=== PATIENT | male | born 1940 | race Caucasian/White ===

== ENCOUNTER → 2018-08-11 | Outpatient (CLI) | payer MEDICARE, OTHER ==
[2018-08-11 12:12] LABS: Basophils # (auto) 0.1 uL; Basophils % (auto) 1.3 % (0.0-2.0); Eosinophils # (auto) 0.3 uL; Eosinophils % (auto) 4.2 % (0.0-7.0); Hematocrit 48.7 % (41.0-53.0); Hemoglobin 16.2 g/dL (13.5-17.5); Lymphocytes # (auto) 2.1 uL; Lymphocytes % (auto) 30.3 % (10.0-50.0); Mean Corpuscular Hemoglobin 32.4 pg (28.0-32.0); Mean Corpuscular Hgb Conc. 33.4 g/dL (32.0-36.0); Mean Corpuscular Volume 97.1 fL (80.0-100.0); Monocytes # (auto) 0.6 uL; Monocytes % (auto) 9.2 % (0.0-12.0); Neutrophils # (auto) 3.8 uL; Nucleated Red Blood Cells % 0.2 %; Platelet Count (auto) 321 10^3/uL (140-450); Red Blood Cells 5.02 10^6/uL (4.5-5.90); Red Cell Distribution Width 13.3 % (11.8-14.3)
[2018-08-11 12:21] LABS: Albumin 3.7 g/dL (3.4-5.0); Potassium 4.4 mmol/L (3.5-5.1)
[2018-08-11 12:26] LABS: BUN/Creatinine Ratio 14.3; Bilirubin, Direct 0.2 mg/dL (0-0.2); Bilirubin, Total 0.6 mg/dL (0.2-1.0); Total Protein 7.8 g/dL (6.4-8.2)
== END | disposition home or self-care (01) ==
LOC: LAB 09:17
PROVIDERS: ATTEND Internal Medicine
DX: Z00.01 Encounter for general adult medical examination with abnormal findings (principal); K74.1 Hepatic sclerosis; E11.9 Type 2 diabetes mellitus without complications; E03.9 Hypothyroidism, unspecified; E55.9 Vitamin D deficiency, unspecified; C61 Malignant neoplasm of prostate; E29.1 Testicular hypofunction
CPT/HCPCS: 36415; 80048; 80061; 80076; 82306; 83036; 84153; 84403; 84443; 85025

== ENCOUNTER → 2018-08-20 | Outpatient (CLI) | payer MEDICARE, OTHER ==
[2018-08-20 09:25] VITALS: BP 113/83
[2018-08-20 09:40] VITALS: BP 113/83
== END | disposition home or self-care (01) ==
LOC: CHF HDHVI 09:23
PROVIDERS: ATTEND Internal Medicine
DX: Z48.02 Encounter for removal of sutures (principal)
CPT/HCPCS: G0463

== ENCOUNTER → 2018-09-15 | Outpatient (CLI) | payer MEDICARE, OTHER ==
[~2018-09-15] MED LIST: LEVO50TA66 PO
== END | disposition home or self-care (01) ==
LOC: Rad HDHVI 10:31
PROVIDERS: ATTEND Internal Medicine Cardiovascular Disease
DX: I34.0 Nonrheumatic mitral (valve) insufficiency (principal); I10 Essential (primary) hypertension; I47.1 Supraventricular tachycardia
CPT/HCPCS: 93306

== ENCOUNTER → 2018-09-28 | Outpatient (CLI) | payer MEDICARE, OTHER | END | disposition home or self-care (01) | LOC: LAB 08:31 | PROVIDERS: ATTEND Internal Medicine Cardiovascular Disease | DX: E03.9 Hypothyroidism, unspecified (principal) | CPT/HCPCS: 36415; 84439; 84443 ==

== ENCOUNTER → 2019-08-12 | Outpatient (CLI) | payer BC, MEDICARE ==
--- NOTE | 2019-08-12 14:15 | NUR ---
PATIENT RECEIVED FROM DR. SCHILLING'S OFFICE PATIENT OVER TO [facility] FORM PREOP EKG AND LABS. PATIENT IS AMBULATING WITH STEADY GAIT, PATIENT IS A&O, APPEARS CALM WITH NO S/S OF DISTRESS/SOB NOTED. VITALS TAKEN, PATIENT IS TACHYCARDIC BUT OTHERWISE REMAINS ASYMPTOMATIC. ALL OTHER VS WNL. EKG PERFORMED BY 'S BACK OFFICE. EKG REVIEWED BY DR. SCHILLING AND RESULTS DISCUSSED WITH PT/PT FAMILY. EVENT HOLTER MONITOR PLACED IN 'S OFFICE WITH INSTRUCTIONS/EDUCATION PROVIDED BY DR. SCHILLING'S BACK OFFICE.
[2019-08-12 14:20] VITALS: BP 106/81
[2019-08-12 14:30] VITALS: BP 121/86
--- NOTE | 2019-08-12 14:40 | NUR ---
Pre-Op Discharge Summary: Pre-op orders received and carried out per MD of LABS and chest xrays. EKG previously performed in Dr. Duarte's back office. Patient given a copy of EKG with instructions to go to [facility] on thursday morning, 08/15/19, at 0700 for preop cardioversion for further follow up care. Pt/pt family verbalized understanding.
[2019-08-12 15:28] LABS: Basophils # (auto) 0.1 uL; Basophils % (auto) 1.1 % (0.0-2.0); Eosinophils # (auto) 0.3 uL; Eosinophils % (auto) 3.9 % (0.0-7.0); Hematocrit 50.7 % (41.0-53.0); Lymphocytes # (auto) 2.2 uL; Lymphocytes % (auto) 30.9 % (10.0-50.0); Mean Corpuscular Hemoglobin 32.2 pg (28.0-32.0); Mean Corpuscular Hgb Conc. 33.6 g/dL (32.0-36.0); Mean Corpuscular Volume 95.9 fL (80.0-100.0); Monocytes # (auto) 0.7 uL; Neutrophils % (auto) 55.1 % (37.0-80.0); Nucleated Red Blood Cells % 0.1 %; Platelet Count (auto) 277 10^3/uL (140-450); Red Blood Cells 5.28 10^6/uL (4.5-5.90); White Blood Cell 7.2 10^3/uL (4.4-10.8)
[2019-08-12 15:43] LABS: BUN/Creatinine Ratio 18.8; Calcium 9.2 mg/dL (8.5-10.1); INR 1.54 (0.9-1.15); Potassium 4.2 mmol/L (3.5-5.1)
== END | disposition home or self-care (01) ==
LOC: Rad HDHVI 14:16
PROVIDERS: ATTEND Internal Medicine Cardiovascular Disease
DX: Z01.812 Encounter for preprocedural laboratory examination (principal); I70.0 Atherosclerosis of aorta; R00.0 Tachycardia, unspecified
CPT/HCPCS: 36415; 71046; 80048; 85025; 85610; 85730; G0463

== ENCOUNTER 2019-08-15 07:01 | Day surgery (SDC) | payer BC, MEDICARE ==
[2019-08-15] MEDS ORDERED: MIDAZOLAM HCL 1MG/1ML-2 ML VIAL IV ONE (08:15)
[2019-08-15] MEDS ORDERED: fentaNYL CITRATE 100 MCG/2 ML VL IV ONE (08:15)
== END 2019-08-15 10:21 | disposition home or self-care (01) ==
LOC: CATH 07:01
PROVIDERS: ATTEND Internal Medicine Cardiovascular Disease
DX: I48.0 Paroxysmal atrial fibrillation (principal); I48.92 Unspecified atrial flutter; I11.0 Hypertensive heart disease with heart failure; I50.9 Heart failure, unspecified; Z87.891 Personal history of nicotine dependence
CPT/HCPCS: 92960; 93005; J2250; J3010; 99152

== ENCOUNTER → 2019-09-26 | Outpatient (CLI) | payer BC, MEDICARE ==
[2019-09-27 11:57] LABS: Basophils # (auto) 0.2 uL; Basophils % (auto) 3.2 % (0.0-2.0); Eosinophils # (auto) 0.4 uL; Eosinophils % (auto) 6.1 % (0.0-7.0); Hematocrit 47.1 % (41.0-53.0); Hemoglobin 15.7 g/dL (13.5-17.5); Lymphocytes # (auto) 2.5 uL; Lymphocytes % (auto) 34.8 % (10.0-50.0); Mean Corpuscular Hemoglobin 32.1 pg (28.0-32.0); Mean Corpuscular Hgb Conc. 33.3 g/dL (32.0-36.0); Mean Corpuscular Volume 96.6 fL (80.0-100.0); Monocytes # (auto) 0.7 uL; Monocytes % (auto) 9.8 % (0.0-12.0); Neutrophils # (auto) 3.3 uL; Neutrophils % (auto) 46.1 % (37.0-80.0); Nucleated Red Blood Cells % 0.1 %; Platelet Count (auto) 262 10^3/uL (140-450); Red Blood Cells 4.87 10^6/uL (4.5-5.90); White Blood Cell 7.2 10^3/uL (4.4-10.8)
[2019-09-27 12:15] LABS: Potassium 4.4 mmol/L (3.5-5.1)
[2019-09-27 12:24] LABS: BUN/Creatinine Ratio 16.7
== END | disposition home or self-care (01) ==
LOC: LAB 15:49
PROVIDERS: ATTEND Internal Medicine Cardiovascular Disease
DX: D64.9 Anemia, unspecified (principal); I10 Essential (primary) hypertension
CPT/HCPCS: 36415; 80048; 85025

== ENCOUNTER → 2019-12-05 | Outpatient (CLI) | payer BC, MEDICARE | END | disposition home or self-care (01) | LOC: Rad HDHVI 08:04 | PROVIDERS: ATTEND Internal Medicine Cardiovascular Disease | DX: I07.1 Rheumatic tricuspid insufficiency (principal); I48.91 Unspecified atrial fibrillation; R07.89 Other chest pain; R06.02 Shortness of breath | CPT/HCPCS: 93306 ==

== ENCOUNTER → 2019-12-09 | Outpatient (CLI) | payer BC, MEDICARE ==
[~2019-12-09] VITALS: Ht 177.8 cm; Wt 99.8 kg
== END | disposition home or self-care (01) ==
LOC: Rad HDHVI 08:55
PROVIDERS: ATTEND Internal Medicine Cardiovascular Disease
DX: I48.91 Unspecified atrial fibrillation (principal); I10 Essential (primary) hypertension
CPT/HCPCS: 78452; 93017; 96374; A9500

== ENCOUNTER → 2020-09-04 | Outpatient (CLI) | payer BC, MEDICARE ==
[2020-09-04 12:07] LABS: Basophils # (auto) 0.1 10 ^3/uL (0-0.2); Basophils % (auto) 2.4 % (0.0-2.0); Eosinophils # (auto) 0.3 10 ^3/uL (0-0.8); Eosinophils % (auto) 5.3 % (0.0-7.0); Hemoglobin 16.7 g/dL (13.5-17.5); Lymphocytes # (auto) 1.4 10 ^3/uL (0.4-5.4); Lymphocytes % (auto) 22.3 % (10.0-50.0); Mean Corpuscular Hemoglobin 33.3 pg (28.0-32.0); Mean Corpuscular Hgb Conc. 33.5 g/dL (32.0-36.0); Mean Corpuscular Volume 99.3 fL (80.0-100.0); Monocytes # (auto) 0.6 10 ^3/uL (0-1.3); Monocytes % (auto) 9.8 % (0.0-12.0); Neutrophils # (auto) 3.8 10 ^3/uL (1.6-8.6); Neutrophils % (auto) 60.2 % (37.0-80.0); Nucleated Red Blood Cells % 0.8 %; Platelet Count (auto) 315 10^3/uL (140-450); Red Blood Cells 5.03 10^6/uL (4.5-5.90); Red Cell Distribution Width 13.1 % (11.8-14.3); White Blood Cell 6.3 10^3/uL (4.4-10.8)
[2020-09-04 12:10] LABS: Urine Blood Negative /uL (Negative); Urine Specific Gravity 1.016 (1.001-1.035)
[2020-09-04 12:21] LABS: Calcium 9.5 mg/dL (8.5-10.1); Potassium 4.7 mmol/L (3.5-5.1)
[2020-09-04 12:28] LABS: Bilirubin, Total 0.5 mg/dL (0.2-1.0)
[2020-09-04 12:31] LABS: Free T4 (Free Thyroxine) 0.84 ng/dL (0.89-1.76)
== END | disposition home or self-care (01) ==
LOC: LAB 08:12
PROVIDERS: ATTEND Internal Medicine Cardiovascular Disease
DX: C61 Malignant neoplasm of prostate (principal); D51.3 Other dietary vitamin B12 deficiency anemia; I10 Essential (primary) hypertension; E11.9 Type 2 diabetes mellitus without complications; E55.9 Vitamin D deficiency, unspecified; D64.9 Anemia, unspecified; R00.2 Palpitations; R53.1 Weakness; R30.0 Dysuria
CPT/HCPCS: 36415; 80053; 80061; 81003; 82306; 82607; 83036; 84153; 84403; 84439; 84443; 85025

== ENCOUNTER → 2021-02-01 | Outpatient (CLI) | payer MEDICARE ==
[2021-02-01 11:42] LABS: Hemoglobin 15.2 g/dL (13.5-17.5); Mean Corpuscular Volume 98.5 fL (80.0-100.0); Nucleated Red Blood Cells % 0.1 %; Red Cell Distribution Width 13.2 % (11.8-14.3)
[2021-02-01 11:44] LABS: Basophils # (auto) 0.2 10 ^3/uL (0-0.2); Basophils % (auto) 2.4 % (0.0-2.0); Eosinophils # (auto) 0.4 10 ^3/uL (0-0.8); Eosinophils % (auto) 5.8 % (0.0-7.0); Hematocrit 43.4 % (41.0-53.0); Lymphocytes # (auto) 2.2 10 ^3/uL (0.4-5.4); Mean Corpuscular Hemoglobin 34.6 pg (28.0-32.0); Mean Corpuscular Hgb Conc. 35.1 g/dL (32.0-36.0); Monocytes # (auto) 0.5 10 ^3/uL (0-1.3); Neutrophils # (auto) 3.2 10 ^3/uL (1.6-8.6); Neutrophils % (auto) 49.8 % (37.0-80.0); Platelet Count (auto) 291 10^3/uL (140-450); Red Blood Cells 4.41 10^6/uL (4.5-5.90); Urine Blood Negative /uL (Negative); Urine Specific Gravity 1.022 (1.001-1.035); White Blood Cell 6.4 10^3/uL (4.4-10.8)
[2021-02-01 11:57] LABS: Potassium 4.4 mmol/L (3.5-5.1)
[2021-02-01 12:07] LABS: Albumin 3.9 g/dL (3.4-5.0); BUN/Creatinine Ratio 12.7; Bilirubin, Direct 0.2 mg/dL (0-0.2); Bilirubin, Total 0.5 mg/dL (0.2-1.0); Calcium 9.5 mg/dL (8.5-10.1); Total Protein 7.2 g/dL (6.4-8.2)
== END | disposition home or self-care (01) ==
LOC: LAB 10:19
PROVIDERS: ATTEND Internal Medicine Cardiovascular Disease
DX: C61 Malignant neoplasm of prostate (principal); D51.3 Other dietary vitamin B12 deficiency anemia; R30.0 Dysuria; R53.1 Weakness; R00.2 Palpitations; I10 Essential (primary) hypertension; E55.9 Vitamin D deficiency, unspecified; E11.9 Type 2 diabetes mellitus without complications; D64.9 Anemia, unspecified
CPT/HCPCS: 36415; 80048; 80061; 80076; 81003; 82306; 83036; 84153; 84403; 84443; 85025

== ENCOUNTER → 2021-02-06 | Outpatient (CLI) | payer MEDICARE ==
[~2021-02-06] VITALS: Ht 180.3 cm; Wt 106.6 kg
== END | disposition home or self-care (01) ==
LOC: Rad HDHVI 13:50
PROVIDERS: ATTEND Internal Medicine Cardiovascular Disease
DX: I10 Essential (primary) hypertension (principal); R00.2 Palpitations; E78.5 Hyperlipidemia, unspecified; U07.1 COVID-19
CPT/HCPCS: 78452; 93017; 96374; A9500

== ENCOUNTER → 2021-02-08 | Outpatient (CLI) | payer MEDICARE | END | disposition home or self-care (01) | LOC: Rad HDHVI 13:02 | PROVIDERS: ATTEND Internal Medicine Cardiovascular Disease | DX: R00.2 Palpitations (principal); R07.89 Other chest pain | CPT/HCPCS: 93306 ==

== ENCOUNTER → 2022-01-10 | Outpatient (CLI) | payer MEDICARE | END | disposition home or self-care (01) | LOC: LAB 09:24 | PROVIDERS: ATTEND Internal Medicine | DX: E03.9 Hypothyroidism, unspecified (principal) | CPT/HCPCS: 36415; 84439; 84443 ==

== ENCOUNTER → 2022-03-07 | Outpatient (CLI) | payer MEDICARE | END | disposition home or self-care (01) | LOC: LAB 10:50 | PROVIDERS: ATTEND Internal Medicine Cardiovascular Disease | DX: E03.9 Hypothyroidism, unspecified (principal) | CPT/HCPCS: 36415; 84443 ==

== ENCOUNTER → 2022-09-08 | Outpatient (CLI) | payer MEDICARE ==
[~2022-09-08] MED LIST changes: +DIGO0.12 PO; +FLUC100T34 PO; +LIOT50TA PO; +MAGN241.4 PO; +MULT-1018 PO; +RIVA10TA PO; +SOTA80TA PO; +[UNRECOGNIZED DRUG - CODE] IM
[2022-09-08 13:06] VITALS: BP 150/80
[2022-09-08 13:23] VITALS: BP 143/78
[2022-09-08 16:35] LABS: Basophils # (auto) 0.1 10 ^3/uL (0-0.2); Basophils % (auto) 1.4 % (0.0-2.0); Eosinophils # (auto) 0.2 10 ^3/uL (0-0.8); Eosinophils % (auto) 3.1 % (0.0-7.0); Hematocrit 46.5 % (41.0-53.0); Hemoglobin 15.6 g/dL (13.5-17.5); Lymphocytes # (auto) 2.1 10 ^3/uL (0.4-5.4); Lymphocytes % (auto) 32.9 % (10.0-50.0); Mean Corpuscular Hemoglobin 31.3 pg (28.0-32.0); Mean Corpuscular Hgb Conc. 33.6 g/dL (32.0-36.0); Mean Corpuscular Volume 93.1 fL (80.0-100.0); Monocytes # (auto) 0.9 10 ^3/uL (0-1.3); Monocytes % (auto) 13.1 % (0.0-12.0); Neutrophils # (auto) 3.2 10 ^3/uL (1.6-8.6); Neutrophils % (auto) 49.5 % (37.0-80.0); Red Blood Cells 4.99 10^6/uL (4.5-5.90); Red Cell Distribution Width 13.3 % (11.8-14.3); White Blood Cell 6.5 10^3/uL (4.4-10.8)
[2022-09-08 16:46] LABS: BUN/Creatinine Ratio 14.6; Calcium 9.5 mg/dL (8.5-10.1); Potassium 4.2 mmol/L (3.5-5.1)
[2022-09-08 17:31] LABS: INR 1.12 (0.9-1.15); Partial Thromboplastin Time 28.6 sec (24.6-33.4)
== END | disposition home or self-care (01) ==
LOC: Rad HDHVI 12:55
PROVIDERS: ATTEND Internal Medicine Cardiovascular Disease
DX: I48.0 Paroxysmal atrial fibrillation (principal)
CPT/HCPCS: 36415; 71046; 80048; 85025; 85610; 85730; 93005; G0463

== ENCOUNTER 2022-09-12 11:45 | Day surgery (SDC) | payer MEDICARE ==
[~2022-09-12] VITALS: Ht 177.8 cm; Wt 102.5 kg
[~2022-09-12 11:45] MED LIST changes: -LEVO50TA66 PO
[2022-09-12] MEDS ORDERED: fentaNYL CITRATE 100 MCG/2 ML VL ONE (15:14)
[2022-09-12] MEDS ORDERED: VANCOMYCIN 1GM/250ML 250 ML IV ONE (15:14)
[2022-09-12] MEDS ORDERED: VANCOMYCIN HCL 1000 MG VL ONE (15:14)
[2022-09-12] MEDS ORDERED: MIDAZOLAM HCL 2MG/2ML 2ml VIAL (1mg/ml) ONE (15:14)
[2022-09-12] MEDS ORDERED: LIDOCAINE 2%HCL (LOCAL ANESTH.) INJ 20ML MDV ONE (15:21)
[2022-09-12] MEDS ORDERED: FUROSEMIDE 20 MG/2 ML VIAL ONE (15:44)
== END 2022-09-12 18:05 | disposition home or self-care (01) ==
LOC: CATH 11:45
PROVIDERS: ATTEND Internal Medicine Cardiovascular Disease
DX: I49.5 Sick sinus syndrome (principal); R06.09 Other forms of dyspnea; I10 Essential (primary) hypertension; Z86.718 Personal history of other venous thrombosis and embolism; I48.0 Paroxysmal atrial fibrillation; Z87.891 Personal history of nicotine dependence; Z79.899 Other long term (current) drug therapy; Z79.01 Long term (current) use of anticoagulants; Z20.822 Contact with and (suspected) exposure to COVID-19
CPT/HCPCS: 33208; 71045; 93005; C1785; C1892; C1898; J1940; J2250; J3010; J3370; U0003; 99152

== ENCOUNTER → 2022-09-17 | Outpatient (CLI) | payer MEDICARE | END | disposition home or self-care (01) | LOC: Rad HDHVI 11:57 | PROVIDERS: ATTEND Internal Medicine Cardiovascular Disease | DX: I70.0 Atherosclerosis of aorta (principal); Z95.0 Presence of cardiac pacemaker | CPT/HCPCS: 71046 ==

== ENCOUNTER → 2023-02-13 | Outpatient (CLI) | payer MEDICARE ==
[~2023-02-13] MED LIST changes: +IOHEXOL 350 MG/ML 100ML IJ ONE; +READI-CAT 2 (BARIUM SULF)(VANILLA SMOOTHIE) 450ML ONE
[2023-02-13 11:22] VITALS: BP 128/79
[2023-02-13 12:18] VITALS: BP 154/73
== END | disposition home or self-care (01) ==
LOC: Rad HDHVI 11:13
PROVIDERS: ATTEND Internal Medicine Cardiovascular Disease
DX: N40.0 Benign prostatic hyperplasia without lower urinary tract symptoms (principal); R63.4 Abnormal weight loss
CPT/HCPCS: 74177; G0463; Q9967

== ENCOUNTER → 2024-09-16 | Outpatient (CLI) | payer MEDICARE ==
[~2024-09-16] MED LIST changes: -IOHEXOL 350 MG/ML 100ML IJ ONE; -READI-CAT 2 (BARIUM SULF)(VANILLA SMOOTHIE) 450ML ONE
== END | disposition home or self-care (01) ==
LOC: Rad HDHVI 09:50
PROVIDERS: ATTEND Internal Medicine Cardiovascular Disease
DX: I10 Essential (primary) hypertension (principal)
CPT/HCPCS: 93306

== ENCOUNTER → 2024-09-28 | Outpatient (CLI) | payer MEDICARE | END | disposition home or self-care (01) | LOC: Rad HDHVI 09:04 | PROVIDERS: ATTEND Internal Medicine Cardiovascular Disease | DX: I25.2 Old myocardial infarction (principal) | CPT/HCPCS: 93880 ==

== ENCOUNTER → 2024-10-24 | Outpatient (CLI) | payer MEDICARE ==
--- NOTE | 2024-10-24 11:26 | DVH ---
EXAM: XY CHEST TWO VIEWS ROUTINE CLINICAL HISTORY: CONGESTION/ SOB COMPARISON: CHEST TWO VIEWS ROUTINE on DOS: 09/17/22, CXR2 on DOS: 09/17/22, CXR2 on DOS: 09/08/22, C HEST TWO VIEWS ROUTINE on DOS: 09/08/22 TECHNIQUE: Frontal and lateral view of the chest was obtained FINDINGS: Lines and Tubes: Cardiac pacemaker projects over left chest wall. Lungs: No focal consolidation. Pleura: No effusion. No pneumothorax. Cardiomediastinal contours: Unremarkable Bones: No acute osseous abnormality. IMPRESSION: No acute cardiopulmonary disease.
== END | disposition home or self-care (01) ==
LOC: Rad HDHVI 09:54
PROVIDERS: ATTEND Internal Medicine Cardiovascular Disease
DX: R09.89 Other specified symptoms and signs involving the circulatory and respiratory systems (principal); R06.02 Shortness of breath
CPT/HCPCS: 71046

== ENCOUNTER 2025-08-28 08:44 | Outpatient (CLI) | payer MEDICARE ==
[~2025-08-28] VITALS: Ht 177.8 cm; Wt 85.3 kg
[2025-08-28] MEDS ORDERED: ADENOSINE 90 MG/30 ML INJ IV ONE (11:14)
[2025-08-28] MEDS ORDERED: ADENOSINE 72 MG in GIVE UN-DILUTED 0 ML IV ONE (11:30)
== END 2025-08-28 17:00 | disposition home or self-care (01) ==
LOC: Rad HDHVI 08:44
PROVIDERS: ATTEND Internal Medicine Cardiovascular Disease
DX: I49.3 Ventricular premature depolarization (principal); I48.91 Unspecified atrial fibrillation; I11.9 Hypertensive heart disease without heart failure; I50.43 Acute on chronic combined systolic (congestive) and diastolic (congestive) heart failure; I48.20 Chronic atrial fibrillation, unspecified; I49.5 Sick sinus syndrome; I25.10 Atherosclerotic heart disease of native coronary artery without angina pectoris; I25.2 Old myocardial infarction; G45.9 Transient cerebral ischemic attack, unspecified; R00.2 Palpitations; E78.00 Pure hypercholesterolemia, unspecified; Z95.0 Presence of cardiac pacemaker
CPT/HCPCS: 78452; 93017; A9500; J0153

== ENCOUNTER 2025-09-13 08:55 | Outpatient (CLI) | payer MEDICARE ==
[2025-09-13 09:06] VITALS: BP 130/86; PULSE 84; RESP 16; O2SAT 96
[2025-09-13 09:30] VITALS: BP 124/71; PULSE 94; RESP 16; O2SAT 96
[2025-09-13] MEDS ORDERED: METO25TA93 PO (10:24)
[2025-09-13] MEDS ORDERED: APIX2.5T PO (10:24)
== END 2025-09-13 17:00 | disposition home or self-care (01) ==
LOC: CHF HDHVI 08:55
PROVIDERS: ATTEND Internal Medicine Cardiovascular Disease
DX: Z01.810 Encounter for preprocedural cardiovascular examination (principal); I48.91 Unspecified atrial fibrillation
CPT/HCPCS: 93005; G0463

== ENCOUNTER 2025-09-14 07:50 | Day surgery (SDC) | payer MEDICARE ==
[2025-09-13 12:13] LABS: Hematocrit 46.1 % (41.0-53.0); Hemoglobin 16.4 g/dL (13.5-17.5); Mean Corpuscular Hemoglobin 33.3 pg (28.0-32.0); Mean Corpuscular Volume 93.7 fL (80.0-100.0); Nucleated Red Blood Cells % 0.1 %
[2025-09-13 12:43] LABS: Anion Gap 7 (5-15); Chloride 101 mmol/L (98-107); Sodium 140 mmol/L (136-145)
[2025-09-13 12:44] LABS: Calcium 10.2 mg/dL (8.7-10.4); Carbon Dioxide 32 mmol/L (20-31); Potassium 5.1 mmol/L (3.5-5.1)
[2025-09-13 12:49] LABS: BUN/Creatinine Ratio 17.5 (10.0-20.0); Blood Urea Nitrogen 18 mg/dL (9-23); Glucose 93 mg/dL (74-106)
[2025-09-13 13:32] LABS: INR 1.19 (0.9-1.15); Partial Thromboplastin Time 28.5 SEC (24.5-34.5); Prothrombin Time 12.4 sec (9.3-11.8)
[~2025-09-14] VITALS: Ht 177.8 cm; Wt 83.9 kg
[~2025-09-14 07:50] MED LIST changes: +APIX2.5T PO; -FLUC100T34 PO; +METO25TA93 PO; -RIVA10TA PO; -SOTA80TA PO; -[UNRECOGNIZED DRUG - CODE] IM
[2025-09-14] MEDS: MIDAZOLAM HCL 2MG/2ML 2ml VIAL (1mg/ml) IV ONE (08:42)
--- NOTE | 2025-09-14 09:08 | DVHOP ---
DATE OF SURGERY: 09/14/2025 CARDIOVERSION PROCEDURE PERFORMED: Cardioversion under conscious sedation. Risks and benefits were explained to the patient. The patient was prepped and draped under sterile condition. The patient was given conscious sedation and the patient is adequately sedated. We were able to deliver 200 joules direct biphasic current. With which the patient converted with frequent PVCs. Heart rate is in the 70s. No neurological deficits have been established. Thus, the patient has successful cardioversion from A-fib to sinus rhythm with PVCs. The patient is supposed to be taking amiodarone, but he has not started it. Therefore, we will load him with amiodarone 800 mg p.o. now and send him home with a prescription for amiodarone. In the meantime, the patient is to continue all anticoagulation. Follow up with me in 1 week. Stable at that time. Gerald Leone MD SA/ASHOK TID: [id number] RECEIPT: [id number]
--- NOTE | 2025-09-14 09:20 | DVHHP ---
ADMIT DATE: 09/14/2025 HISTORY OF PRESENT ILLNESS: The patient was well known to me with history of sick sinus syndrome, history of hypertension, hyperlipidemia. Now presents with signs and symptoms of atrial fibrillation. The patient is extremely lethargic and fatigued. Because of the above presentation, it was felt that the patient should undergo cardioversion. The patient is very symptomatic with atrial fibrillation. His ejection fraction is relatively preserved, but because of diastolic dysfunction, lack of atrial kick is causing him symptoms. The next step, if he fails a cardioversion and maintaining sinus rhythm, AFib ablation, but because of his age, I believe a more conservative approach may be beneficial. Risks and benefits were explained to the patient. The patient understands and agrees with family present. REVIEW OF SYSTEMS: He denies any PND or palmar pain. No palpitation. No syncopal episode at this time. No history of CVA. No history of melena, hematochezia. No hematemesis or hemoptysis. No history of COPD. No history of any recent trauma, fever, or chills. PHYSICAL EXAMINATION: VITAL SIGNS: Blood pressure is 122/80. Pulse is 70. Irregular. HEENT: Pupils are reactive. Funduscopic exam shows no AV necking. No exudates. No papilledema. Extraocular muscles intact. Sclerae are icteric. NECK: No JVD appreciated. Carotid pulses are 2+ and symmetrical. Normal upstroke and contour. No cervical adenopathy. No supraclavicular adenopathy. PULMONARY: Clear to auscultation. CARDIOVASCULAR: Regular rate without S3 or S4. PMI is not displaced. ABDOMEN: Soft, nontender. Normal bowel sounds. EXTREMITIES: 1+ pulses bilaterally. ASSESSMENT AND PLAN: Thus, the patient with atrial fibrillation with rapid ventricular response, symptomatic with shortness of breath. The patient is now to undergo cardioversion. Further recommendation after the cardioversion. Gerald Leone MD SA/DEAN TID: [id number] RECEIPT: [id number]
--- NOTE | 2025-09-14 09:23 | DVHDS ---
DATE OF DISCHARGE: 09/14/2025 DISCHARGE DIAGNOSIS: Atrial fibrillation, status post cardioversion to sinus rhythm. HOSPITAL COURSE: The patient is clinically stable. No neurological deficit. The patient will be sent home on anticoagulation and on amiodarone. 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 Stable at that time of discharge. DISPOSITION: Home. ACTIVITY: As instructed. DIET: 2 grams sodium diet. Gerald Leone MD SA/EKT TID: [id number] RECEIPT: [id number]
[2025-09-14] MEDS: AMIODARONE HCL 200 MG TAB PO ONE (09:38)
--- NOTE | 2025-09-14 12:06 | ECG ---
[facility] Test Date: 2025-09-14 Test Time: 08:59:08 Pat Name: DEEPTI WILSON Department: Room: Gender: M Belt Maker: LUIS ALBERTO : 1940 Requested By: TONIE HUGHES Order Number: [id number] Reading MD: Tristen Seth Measurements Intervals Benjamin Rate: 83 P: 59 [place]: 184 QRS: 89 QRSD: 174 T: -66 QT: 414 QTc: 486 Interpretive Statements Demand pacemaker, interpretation is based on intrinsic rhythm Sinus rhythm with occasional premature ventricular complexes Right bundle branch block Marked T wave abnormality, consider inferolateral ischemia Electronically Signed On 09-14-2025 19:25:16 PST by Tristen Seth Please click the below link to view image of tracing.
== END 2025-09-14 10:10 | disposition home or self-care (01) ==
LOC: CATH 07:50
PROVIDERS: ATTEND Internal Medicine Cardiovascular Disease
DX: I48.91 Unspecified atrial fibrillation (principal); R06.02 Shortness of breath; I49.5 Sick sinus syndrome; I11.0 Hypertensive heart disease with heart failure; I50.32 Chronic diastolic (congestive) heart failure; E78.5 Hyperlipidemia, unspecified; Z79.01 Long term (current) use of anticoagulants; Z79.899 Other long term (current) drug therapy; Z87.891 Personal history of nicotine dependence
CPT/HCPCS: 36415; 80048; 85025; 85610; 85730; 92960; 93005; J2250; 99152